=== PATIENT | male | born 1950 | race Caucasian/White ===

== ENCOUNTER → 2017-10-15 | Day surgery (SDC) | payer OTHER ==
[~2017-10-15] VITALS: Ht 167.6 cm; Wt 120.2 kg
--- NOTE | 2017-10-15 21:48 | Operative Report ---
Operative/Inv Procedure Report Surgery Date: 10/15/17 Name of Procedure: Right ureteroscopy and stone extraction stent placement Pre-Operative Diagnosis: Right ureteral calculus Post-Operative Diagnosis: Same Estimated Blood Loss: scant Surgeon/Mumps Developer: Dominic Landaverde MD Anesthesia: general endotracheal tube Operative/Procedure Note Note: Patient has a history of a right ureteral calculus, requiring previous stent placement. We reviewed various alternatives, and he was interested in undergoing right ureteroscopy, stone extraction, and stent placement. Reviewed the risks/benefits thereof including but not exclusive of , heart attack, stroke, hemorrhage requiring transfusion, potential need for further procedures, potential damage to adjacent including the kidney, ureter, bladder, urethra. He was agreeable to procedure which is as follows. After uneventful induction of general anesthesia patient was placed in the lithotomy position and prepped and draped in a sterile fashion. At this point a 22 [place]ese scope was passed per urethra and into the bladder thorough inspection of bladder did not reveal any stones or mucosal lesions. The right indwelling double J stent was identified, and brought out through the meatus. A guidewire was then passed by this double-J stent up into the right kidney. The scope was removed, and over the guidewire was placed a dual-lumen catheter. This was passed a second guidewire. One wire was used as a working wire, the other used as a safety wire. Over the working wire was passed a rigid ureteroscope, which identified small stone in the right midureter. It was adherent to the wall, and was teased off the wall easily. This point was basketed, and removed in its entirety. It was sent for analysis. No other stones were identified. At this point the safety wire was backloaded into a cystoscope, over this was passed a double-J stent which was positioned fluoroscopically as well as endoscopically. Upon completion of procedure the bladder was emptied patient was awakened and returned to recovery in good condition.
--- NOTE | 2017-10-17 07:37 | RADIOLOGY REPORT ---
EXAMINATION: Intraoperative fluoroscopy CLINICAL INFORMATION: Right-sided ureteroscopically with stent placement COMPARISON: None. TECHNIQUE: Intraoperative fluoroscopy was provided for use by Dr. Landaverde A total of 7 images were saved to PACS. A radiologist was not present during imaging. TOTAL FLUOROSCOPIC TIME: 0.2 minutes FINDINGS\E\IMPRESSION: Intraoperative fluoroscopy provided for use by Dr. Landaverde. Please see operative note for detailed findings.
== END ==
LOC: STS 02:16
DX: N20.1 Calculus of ureter (principal); Z87.442 Personal history of urinary calculi; J45.20 Mild intermittent asthma, uncomplicated; E66.01 Morbid (severe) obesity due to excess calories; Z68.41 Body mass index [BMI] 40.0-44.9, adult
CPT/HCPCS: 76000; C2617; J0690; J2250